=== PATIENT | female | born 1990 | race Two or more races ===

== ENCOUNTER → 2025-04-08 | Emergency (ER) | payer OTHER ==
[~2025-04-08] VITALS: Ht 160 cm; Wt 50.8 kg
[~2025-04-08] MED LIST: 0.9 % SODIUM CHLORIDE 1,000 ML IV SCH; DEXAMETHASONE SODIUM PHOSPHATE 4 MG/ML VIAL IV STA; DEXAMETHASONE SODIUM PHOSPHATE 4 MG/ML VIAL ONE; FAMOTIDINE/PF 20 MG in 0.9 % SODIUM CHLORIDE 8 ML IV PUSH ONE; FAMOTIDINE/PF 20 MG/2 ML VIAL IV STA; FAMOTIDINE/PF 20 MG/2 ML VIAL ONE; KETOROLAC TROMETHAMINE 30 MG VIAL IU STA; KETOROLAC TROMETHAMINE 30 MG VIAL ONE; ONDANSETRON HCL 2 MG/ML VIAL IV STA; ONDANSETRON HCL 2 MG/ML VIAL ONE; ONDANSETRON HCL 4 MG in 0.9 % SODIUM CHLORIDE 50 ML IV ONE; PAXIL20 MG PO; PEPCID AC20 MG PO; ROSADAN45 G1 VAG; SPIRONOLACTONE50 MG PO; ZOFRAN8 MG PO
[2025-04-08 16:55] LABS: BASO % 1.1 % (0.1-1.2); EOS # 0.03 (0.04-0.54); EOS % 0.4 % (0.7-7.0); LYMPH # 1.61 (1.18-3.74); LYMPH % 19.5 % (19.3-53.1); MEAN PLATELET VOLUME 8.90 fl (9.4-12.4); MONO # 0.56 (0.24-0.82); MONO % 6.8 % (4.7-12.5); NEUT # 5.96 (1.56-6.13); NEUT % 72.0 % (34.0-71.1); RED CELL DISTRIBUTION WIDTH 12.9 % (11.6-14.4)
[2025-04-08 17:16] LABS: URINE APPEARANCE Clear; URINE BILIRRUBIN Negative (NEGATIVE); URINE BLOOD Large; URINE COLOR Yellow; URINE GLUCOSE Negative (NEGATIVE); URINE KETONE 15 (NEGATIVE); URINE LEUKOCYTE Trace; URINE NITRATE Negative; URINE PROTEIN Negative (NEGATIVE); URINE UROBILINOGEN 0.2 E.U./dl
[2025-04-08 17:21] LABS: URINE BACTERIA 218.3 uL (0.0-1933); URINE EPITHELIAL CELLS 22.2 uL (0.0-38.8); URINE RBC 63.3 uL (0.0-20.8); URINE WBC 14.2 uL (0.0-23.2)
[2025-04-08 17:29] LABS: TYPE CELLS SQUAMOUS; URINE CAST 0.00 uL (0.0-1.40)
[2025-04-08 17:55] LABS: ALT/SGPT 18.0 U/L (12-78); AST/SGOT 10.0 U/L (15-37); BILIRUBIN TOTAL 0.43 mg/dL (0.3-1.2); BUN CREA RATIO 13.0 (7.0-25.0); CREATININE SERUM 0.9 mg/dL (0.55-1.02); GFR 71.25; GLOBULINA 2.9 G/DL (2.4-3.5); GLUCOSE FASTING 93.0 mg/dL (65-100); OSMOLALITY SERUM 279.0 MOSM/KG (275-295)
== END | disposition home or self-care (01) ==
LOC: ER 15:27
PROVIDERS: General Practice
DX: K52.89 Other specified noninfective gastroenteritis and colitis (principal); E28.2 Polycystic ovarian syndrome; G90.1 Familial dysautonomia [Riley-Day]; N76.0 Acute vaginitis